=== PATIENT | male | born 1965 | race Native Hawaiian/Other Pacific Islander ===

== ENCOUNTER 2020-02-17 12:16 | Emergency (ER) | payer OTHER ==
[~2020-02-17] VITALS: Ht 180.3 cm; Wt 122.5 kg
[2020-02-17 12:29] VITALS: BP 123/78; TEMP 103.9
[2020-02-17 13:00] LABS: PLATELET COUNT 167 K/uL (142-355)
[2020-02-17 13:16] LABS: POTASSIUM 3.7 mmol/L (3.6-5.2)
== END 2020-02-17 13:30 | disposition home or self-care (01) ==
LOC: ED 12:16
PROVIDERS: Hospitalist
DX: J06.9 Acute upper respiratory infection, unspecified (principal); R50.9 Fever, unspecified; Z03.818 Encounter for observation for suspected exposure to other biological agents ruled out
CPT/HCPCS: 80048; 85027; 87502; 87635; 87651; 99283; J0696; U0002